=== PATIENT | male | born 1960 | race Two or more races ===

== ENCOUNTER 2019-07-08 17:55 | Inpatient (IN) | payer OTHER, MEDICAID ==
[~2019-07-08] VITALS: Ht 175.3 cm; Wt 158.0 kg
[~2019-07-08 17:55] MED LIST: ALL100T PO; ASPI-231 PO; ATEN-60 PO; GLIP5TAB12 PO; Pantoprazole Sodium Sesquihydr PO; TAM04C PO
[2019-07-08] MEDS ORDERED: SODIUM CHLORIDE 0.9% 1,000 ML IVB ONE (18:14)
[2019-07-08 18:45] LABS: Basophils # (auto) 0 10 ^3/uL (0-0.2); Basophils % (auto) 0.6 % (0.0-2.0); Eosinophils # (auto) 0.1 10 ^3/uL (0-0.8); Eosinophils % (auto) 2.2 % (0.0-7.0); Hematocrit 34.8 % (41.0-53.0); Hemoglobin 11.2 g/dL (13.5-17.5); Lymphocytes # (auto) 0.6 10 ^3/uL (0.4-5.4); Lymphocytes % (auto) 9.6 % (10.0-50.0); Mean Corpuscular Hemoglobin 32.2 pg (28.0-32.0); Mean Corpuscular Hgb Conc. 32.2 g/dL (32.0-36.0); Mean Corpuscular Volume 99.8 fL (80.0-100.0); Monocytes # (auto) 0.4 10 ^3/uL (0-1.3); Monocytes % (auto) 6.7 % (0.0-12.0); Neutrophils # (auto) 5.3 10 ^3/uL (1.6-8.6); Neutrophils % (auto) 80.9 % (37.0-80.0); Nucleated Red Blood Cells % 0.1 %; Platelet Count (auto) 161 10^3/uL (140-450); Red Blood Cells 3.49 10^6/uL (4.5-5.90); Red Cell Distribution Width 15.6 % (11.8-14.3); White Blood Cell 6.5 10^3/uL (4.4-10.8)
[2019-07-08 19:10] LABS: Albumin 3.4 g/dL (3.4-5.0); Calcium 8.9 mg/dL (8.5-10.1); Magnesium 2.2 mg/dL (1.6-2.6); Potassium 4.9 mmol/L (3.5-5.1)
[2019-07-08 19:13] LABS: Total Protein 7.4 g/dL (6.4-8.2)
[2019-07-08 19:34] LABS: INR 1.23 (0.9-1.15); Partial Thromboplastin Time 30.4 sec (23.64-32.05)
[2019-07-08] MEDS ORDERED: SITA100T7 PO (20:37)
[2019-07-08] MEDS ORDERED: HYDROcodone-ACET 10/325MG TAB PO ONE (21:00)
[2019-07-08] MEDS ORDERED: TEMAZEPAM 15 MG CAP PO PRN (21:30)
[2019-07-08] MEDS ORDERED: DEXTROSE (50%) 50ML SYRG IV PRN (21:30)
[2019-07-08] MEDS ORDERED: ONDANSETRON HCL 4 MG/2 ML VIAL IV PRN (21:30)
[2019-07-08] MEDS ORDERED: ACETAMINOPHEN 325 MG TAB PO PRN (21:30)
[2019-07-08 22:00] VITALS: BP 126/68
--- NOTE | 2019-07-08 22:05 | NUR ---
MS admit from ER BOY VO admitted to tele/MS. Patient oriented to AMADEO BRAND RN primary RN, MST unit, room 247, bed A, and unit policies regarding patient care and visiting hours. Patient weighed by bed scale and encouraged to call if they need something. All questions and concerns addressed, patient verbalized understanding. Note: PATIENT IS AWAKE, ALERT AND ORIENTED X4, ON 3L OF OXYGEN VIA NC WITH EVEN AND UNLABORED RESPIRATIONS, NO S/S OF DISTRESS SOB OR PAIN. PATIENT ABLE TO TURN INDEPENDENTLY, BED IN LOWEST LOCKED POSITION, SIDE RAILS UP X2, AND CALL LIGHT WITHIN REACH. WILL CONTINUE TO MONITOR Q1HR PRN.
[2019-07-08 22:23] LABS: Urine Bacteria NONE SEEN /hpf (None Seen); Urine Blood Negative /uL (Negative); Urine Hyaline Cast FEW /lpf (0 - 2); Urine Specific Gravity 1.018 (1.001-1.035); Urine WBC 1 /hpf (0 - 3)
--- NOTE | 2019-07-08 23:09 | NUR ---
UNABLE TO CONFIRM MEDICATION LISTED FROM ER. MEDICATIONS STATED HOME MEDS ARE UNABLE TO BE CONFIRMED BY PATIENT. PATIENT STATES DAUGHTER CAN CONFIRM LIST IN MORNING. INTERLOCKER RN MADE AWARE.
[2019-07-08] MEDS ORDERED: HYDROcodone-ACET 5/325MG TAB PO PRN (23:15)
--- NOTE | 2019-07-08 23:58 | NUR ---
BLOOD SUGAR 77 PATIENT WAS GIVEN 1 ORANGE JUICE, WILL CONTINUE TO MONITOR
[2019-07-09] VITALS (7 sets, daily range): BP systolic 111–140; BP diastolic 71–82
[2019-07-09] MEDS: ACCU-CHEK COMFORT CURVE STRIP VI SCH ×6 (00:07→20:31)
[2019-07-09] MEDS: FAMOTIDINE 20 MG TAB PO SCH ×3 (00:07→21:36)
--- NOTE | 2019-07-09 02:35 | NUR ---
BLOOD SUGAR 69 PATIENT CALLED NURSE REQUESTING TO HAVE HIS BLOOD SUGAR CHECKED. PATIENT STATED HIS CONCERN FOR HIS BLOOD SUGAR DROPPING AND REQUESTED "SOME KIND OF SHOT". EDUCATED PATIENT ON PROTOCOL AND POLICY, PATIENT VERBALIZED UNDERSTANDING. PATIENT WAS GIVEN 2 ORANGE JUICES WITH 2 PACKETS OF SUGAR. WILL REASSESS BLOOD SUGAR PRN AND AT SCHEDULED 0400.
[2019-07-09] MEDS: InsuLIN REG 1unit/0.01ml Soln (100units/ml) SC SCH ×6 (04:00→20:00)
[2019-07-09 06:00] LABS: Basophils # (auto) 0 10 ^3/uL (0-0.2); Basophils % (auto) 0.5 % (0.0-2.0); Eosinophils # (auto) 0.2 10 ^3/uL (0-0.8); Eosinophils % (auto) 3.9 % (0.0-7.0); Hematocrit 34.7 % (41.0-53.0); Hemoglobin 11.4 g/dL (13.5-17.5); Lymphocytes # (auto) 0.8 10 ^3/uL (0.4-5.4); Lymphocytes % (auto) 13.2 % (10.0-50.0); Mean Corpuscular Hemoglobin 32.6 pg (28.0-32.0); Mean Corpuscular Hgb Conc. 32.8 g/dL (32.0-36.0); Mean Corpuscular Volume 99.4 fL (80.0-100.0); Monocytes # (auto) 0.5 10 ^3/uL (0-1.3); Monocytes % (auto) 7.3 % (0.0-12.0); Neutrophils # (auto) 4.6 10 ^3/uL (1.6-8.6); Neutrophils % (auto) 75.1 % (37.0-80.0); Nucleated Red Blood Cells % 0.1 %; Platelet Count (auto) 159 10^3/uL (140-450); Red Blood Cells 3.49 10^6/uL (4.5-5.90); Red Cell Distribution Width 15.8 % (11.8-14.3); White Blood Cell 6.2 10^3/uL (4.4-10.8)
[2019-07-09 06:20] LABS: Calcium 8.8 mg/dL (8.5-10.1); Potassium 4.6 mmol/L (3.5-5.1)
--- NOTE | 2019-07-09 06:20 | NUR ---
PAIN MEDICATION PAGED HOSPITALIST, AWAITING CALLBACK FOR PAIN MEDICATION. PATIENT STATES HE CURRENTLY TAKES 10/325 NORCO AT HOME Q4HRS, AND THAT HE CANNOT GO 8HRS WITHOUT PAIN MEDICATION DUE TO HIS LOWER BACK PROBLEMS.
[2019-07-09 06:21] LABS: BUN/Creatinine Ratio 22.6
--- NOTE | 2019-07-09 07:00 | NUR ---
PAGE RETURNED RECEIVED CALL FROM BEAN GUERRERO, RECEIVED NEW ORDERS FOR PAIN MEDS, WILL FOLLOW THROUGH WITH ORDER.
[2019-07-09] MEDS: HYDROcodone-ACET 10/325MG TAB PO PRN ×3 (07:31→20:38)
[2019-07-09] MEDS: ASPirin 81 mg TAB PO SCH (09:14)
[2019-07-09] MEDS: ATENOLOL 50 MG TAB PO SCH (09:16)
[2019-07-09] MEDS: ALLOPURINOL 100 MG TAB PO SCH (09:16)
--- NOTE | 2019-07-09 10:07 | NUR ---
PT. TAKEN OFF BIPAP AND PLACED ON 3.5LPM NC, PT. REQUESTS TO COME OFF OF BIPAP AT THIS TIME AND WANTS TO HAVE A BOWEL MOVEMENT. APICULTURIST NOTIFIED AND WENT TO GO HELP PT.
--- NOTE | 2019-07-09 14:45 | NUR ---
DR. MILLER AT BEDSIDE TO ASSESS PATIENT AND DISCUSS PLAN OF CARE
[2019-07-09] MEDS: GABAPENTIN 300 MG CAP PO SCH ×2 (15:17→21:36)
--- NOTE | 2019-07-09 16:12 | NUR ---
Richardson catheter dc'd Order to discontinue richardson catheter. Richardson dc'd with clean technique following deflation of balloon. Patient tolerated well with no complaints of pain. Continue care.
[2019-07-09] MEDS ORDERED: TAMSULOSIN HYDROCHLORIDE 0.4 MG CAP PO SCH (18:00)
--- NOTE | 2019-07-09 19:15 | NUR ---
Opening Shift Note Assumed care of patient, awake, alert and oriented x4, on 3L of oxygen via NC with even and unlabored respirations, no S/S of distress/SOB or pain. Patient able to turn independently, bed in lowest locked position, side rails up x2, and call light within reach. Instructed on POC and to call for assist PRN, will continue to monitor for changes Q1hr and PRN.
[2019-07-10] MEDS: ACCU-CHEK COMFORT CURVE STRIP VI SCH ×5 (00:50→16:00)
[2019-07-10] MEDS: InsuLIN REG 1unit/0.01ml Soln (100units/ml) SC SCH ×5 (03:35→16:00)
[2019-07-10] MEDS: HYDROcodone-ACET 10/325MG TAB PO PRN (03:42)
[2019-07-10 05:00] VITALS: BP 113/70
[2019-07-10] MEDS: GABAPENTIN 300 MG CAP PO SCH ×2 (05:32→14:17)
--- NOTE | 2019-07-10 07:42 | NUR ---
Respiratory note: PT IS AWAKE, AND ALERT. NO RESPIRATORY DISTRESS NOTED. SPO2 94% ON 3 L NC, HR 76, RR 20, BS CLEAR/DIMINISHED BILATERALLY. PT STATES THAT BEING ON BIPAP AT NIGHT HAS HELPED WITH HIS BEING ABLE TO SLEEP SIGNIFICANTLY. WILL CONTINUE TO MONITOR PT.
[2019-07-10 08:00] VITALS: BP 145/73
[2019-07-10 09:00] VITALS: BP 129/67
--- NOTE | 2019-07-10 09:55 | NUR ---
WOUND CARE NOTE: IN TO SEE PATIENT PER WOUND CONSULT REQUEST. PATIENT ADMITTED TO [facility] WITH DIAGNOSIS OF PERSISTENT HYPOGLYCEMIA. PATIENT HAS A CURRENT EFRAIN SCORE OF 17. PATIENT IS SITTING UP IN CHAIR, BLE ELEVATED FOR EDEMA CONTROL. HE HAS CHRONIC EDEMA, ERYTHEMA, SCABBED CLOSED STASIS ULCERATIONS TO BOTH LOWER LEGS. PATIENT IS CURRENTLY RECEIVING DIURETICS, AND BLE ARE NO LONGER WEEPING. LEFT ALL OPEN TO AIR. WOUND PHOTOS WERE TAKEN UPON ADMIT BY BEDSIDE NURSE FOR REFERENCE. PATIENT EDUCATED IN WOUND CARE AT THIS TIME. PATIENT VERBALIZED UNDERSTANDING AND WILL BE FOLLOWING UP WITH SENIOR MEDIA PLANNER FOR HIS PVD/VENOUS STASIS ULCERS. PATIENT WILL BE DISCHARGING HOME THIS PM, PER MD ORDER. NO FURTHER WOUND CARE NEEDED AT THIS TIME. Addendum: 07/10/19 at 1700 by Amelia Banegas RN Amended: Links added.
[2019-07-10] MEDS: FAMOTIDINE 20 MG TAB PO SCH (10:47)
[2019-07-10] MEDS: ATENOLOL 50 MG TAB PO SCH (10:48)
[2019-07-10] MEDS: ASPirin 81 mg TAB PO SCH (10:48)
[2019-07-10] MEDS: ALLOPURINOL 100 MG TAB PO SCH (10:49)
[2019-07-10 13:00] VITALS: BP 125/66
[2019-07-10 15:42] VITALS: BP 145/73
--- NOTE | 2019-07-10 17:05 | NUR ---
Discharge instructions given as ordered. Encourage to follow up with PMD as instructed. All questions and concerns addressed. Patient verbalized understanding. Medication reconciliation form completed and copy given to patient. IV removed with catheter intact, pressure dressing applied. Patient taken to vehicle via wheelchair with all personal belongings, accompanied by staff . No distress noted at time of departure.
== END 2019-07-10 17:05 | disposition home or self-care (01) | DRG 638 ==
LOC: EDUNIT# 17:55 → EDBD 17:55 → ER 17:55 → OVERFLOW 17:56 → EAST 22:05
PROVIDERS: ADMIT Nurse Practitioner; ATTEND Internal Medicine Nephrology
PROC: 5A09457 Assistance with Respiratory Ventilation, 24-96 Consecutive Hours, Continuous Positive Airway Pressure (ICD-10-PCS; principal; 2019-07-09)
DX: E11.649 Type 2 diabetes mellitus with hypoglycemia without coma (principal); L97.919 Non-pressure chronic ulcer of unspecified part of right lower leg with unspecified severity; L97.929 Non-pressure chronic ulcer of unspecified part of left lower leg with unspecified severity; J96.10 Chronic respiratory failure, unspecified whether with hypoxia or hypercapnia; D64.9 Anemia, unspecified; I50.9 Heart failure, unspecified; E11.65 Type 2 diabetes mellitus with hyperglycemia; E78.5 Hyperlipidemia, unspecified; I11.0 Hypertensive heart disease with heart failure; I87.2 Venous insufficiency (chronic) (peripheral); I25.10 Atherosclerotic heart disease of native coronary artery without angina pectoris; J44.9 Chronic obstructive pulmonary disease, unspecified; Z82.49 Family history of ischemic heart disease and other diseases of the circulatory system; Z83.3 Family history of diabetes mellitus
CPT/HCPCS: 36415; 51702; 71045; 80048; 80053; 81001; 82962; 83036; 83690; 83735; 83880; 84484; 85025; 85610; 85730; 93005; 93306; 94660; G0378; J2405

== ENCOUNTER 2019-09-05 08:57 | Inpatient (IN) | payer OTHER, MEDICAID ==
[~2019-09-05] VITALS: Ht 175.3 cm; Wt 144.1 kg
[~2019-09-05 08:57] MED LIST changes: -ALL100T PO; -GLIP5TAB12 PO
[2019-09-05] MEDS ORDERED: SODIUM CHLORIDE 0.9% 1,000 ML IV ONE (09:24)
[2019-09-05 10:11] LABS: Basophils # (auto) 0 10 ^3/uL (0-0.2); Basophils % (auto) 0.6 % (0.0-2.0); Eosinophils # (auto) 0.2 10 ^3/uL (0-0.8); Eosinophils % (auto) 3.5 % (0.0-7.0); Hematocrit 31.6 % (41.0-53.0); Hemoglobin 10.2 g/dL (13.5-17.5); Lymphocytes # (auto) 0.5 10 ^3/uL (0.4-5.4); Lymphocytes % (auto) 11.7 % (10.0-50.0); Mean Corpuscular Hemoglobin 30.6 pg (28.0-32.0); Mean Corpuscular Hgb Conc. 32.4 g/dL (32.0-36.0); Mean Corpuscular Volume 94.4 fL (80.0-100.0); Monocytes # (auto) 0.3 10 ^3/uL (0-1.3); Monocytes % (auto) 6.5 % (0.0-12.0); Neutrophils # (auto) 3.6 10 ^3/uL (1.6-8.6); Neutrophils % (auto) 77.7 % (37.0-80.0); Nucleated Red Blood Cells % 0.1 %; Platelet Count (auto) 155 10^3/uL (140-450); Red Blood Cells 3.35 10^6/uL (4.5-5.90); Red Cell Distribution Width 16.1 % (11.8-14.3); White Blood Cell 4.6 10^3/uL (4.4-10.8)
[2019-09-05] MEDS ORDERED: MORPHINE SULF INJ 2 MG/ML SYRINGE 1ML IV ONE ×2 (10:15→13:30)
[2019-09-05] MEDS ORDERED: ONDANSETRON HCL 4 MG/2 ML VIAL IV ONE ×2 (10:15→13:30)
[2019-09-05 10:30] LABS: Albumin 3.2 g/dL (3.4-5.0); Anion Gap 1 (5-15); Blood Urea Nitrogen 17 mg/dL (7-18); Calcium 9.1 mg/dL (8.5-10.1); Carbon Dioxide 36 mmol/L (21-32); Chloride 98 mmol/L (98-107); Glucose 149 mg/dL (74-106); Potassium 4.6 mmol/L (3.5-5.1); Sodium 135 mmol/L (136-145)
[2019-09-05 10:35] LABS: Alanine Aminotransferase 10 U/L (16-61); Alkaline Phosphatase 104 U/L (45-117); Aspartate Aminotransferase 6 U/L (15-37); BUN/Creatinine Ratio 20.5; GFR African American 122 mL/min; GFR Non-African American 101 mL/min; Total Protein 7.2 g/dL (6.4-8.2)
[2019-09-05] MEDS ORDERED: FUROSEMIDE 40 MG/4 ML VIAL IV ONE (13:30)
[2019-09-05] MEDS ORDERED: MORPHINE SULF INJ 2 MG/ML SYRINGE 1ML IV PRN (14:30)
[2019-09-05] MEDS ORDERED: NITROGLYCERIN 0.4 MG SL TAB SL PRN (14:30)
[2019-09-05 14:31] VITALS: BP 125/65
[2019-09-05] MEDS ORDERED: ACETAMINOPHEN 500 MG TAB PO PRN (14:45)
[2019-09-05] MEDS ORDERED: PROMETHAZINE HCL 25 MG/ML 1ML IV PRN (14:45)
[2019-09-05] MEDS ORDERED: LACTULOSE 20Gm/30ML SOLN PO PRN (14:45)
[2019-09-05] MEDS ORDERED: DEXTROSE (50%) 50ML SYRG IV PRN (14:45)
[2019-09-05] MEDS ORDERED: traMADol HCL 50 MG TAB PO PRN (14:45)
[2019-09-05 14:58] LABS: CRP High Sensitivity 0.35 mg/dL (< 0.3)
[2019-09-05 15:05] VITALS: BP 125/64
--- NOTE | 2019-09-05 15:05 | NUR ---
RT NOTE: TOOK PT. OFF BIPAP DUE TO PT. NOW COVID R/O. RN AWARE. PT. PLACED ON 4L N/C. POX 92%.
[2019-09-05 15:09] LABS: Urine Amorphous Crystal FEW /hpf (None Seen); Urine Bacteria NONE SEEN /hpf (None Seen); Urine Blood TRACE /uL (Negative); Urine Mucus FEW (None Seen); Urine Specific Gravity 1.022 (1.001-1.035); Urine WBC 1 /hpf (0 - 3)
[2019-09-05] MEDS ORDERED: ACETAMINOPHEN 325 MG TAB PO ONE (15:30)
[2019-09-05 15:53] LABS: Alcohol, Urine < 3.0 mg/dL (0-10); Amphetamine Screen, Urine NEGATIVE (NEGATIVE); Barbiturate Scree,Urine NEGATIVE (NEGATIVE); Benzodiazephine Screen, Urine NEGATIVE (NEGATIVE); Cannabinoid Screen, Urine NEGATIVE (NEGATIVE); Cocaine Screen, Urine NEGATIVE (NEGATIVE); Opiate Scree,Urine POSITIVE (NEGATIVE); Phencyclidine Screen, Urine NEGATIVE (NEGATIVE)
[2019-09-05 16:41] VITALS: BP 110/56
[2019-09-05] MEDS: levoFLOXacin 500MG 100 ML IV SCH (16:56)
[2019-09-05] MEDS: HYDROcodone-ACET 10/325MG TAB PO PRN ×2 (16:57→22:50)
[2019-09-05] MEDS: ACCU-CHEK COMFORT CURVE STRIP VI SCH ×2 (17:16→22:52)
[2019-09-05] MEDS: InsuLIN REG 1unit/0.01ml Soln (100units/ml) SC SCH ×2 (17:17→22:00)
[2019-09-05 18:20] VITALS: BP 101/46
[2019-09-05] MEDS ORDERED: ENOXAPARIN SOD 40 MG/0.4 ML SYRINGE SC SCH (22:00)
[2019-09-05] MEDS: CLINDAMYCIN 600MG IV 50 ML IV SCH (22:50)
[2019-09-05] MEDS: SODIUM CHLOR 0.9% PF (SALINE LOCK) 10ML VIAL/SYR IV SCH (22:51)
[2019-09-05] MEDS: DOXYCYCLINE 100 MG TAB/CAP PO SCH (22:51)
[2019-09-05] MEDS: ENOXAPARIN SOD 80 MG/0.8ML SYRINGE SC SCH (22:52)
[2019-09-05] MEDS: ALBUTEROL SULF HFA 90MCG INH 200DOSE IN SCH (23:17)
[2019-09-06] MEDS: HYDROcodone-ACET 10/325MG TAB PO PRN ×3 (03:25→15:05)
[2019-09-06] MEDS: ALBUTEROL SULF HFA 90MCG INH 200DOSE IN SCH ×2 (06:00→16:23)
[2019-09-06] MEDS: InsuLIN REG 1unit/0.01ml Soln (100units/ml) SC SCH ×4 (07:00→21:37)
[2019-09-06] MEDS: ACCU-CHEK COMFORT CURVE STRIP VI SCH ×4 (07:03→21:38)
[2019-09-06] MEDS: SODIUM CHLOR 0.9% PF (SALINE LOCK) 10ML VIAL/SYR IV SCH ×3 (07:03→21:36)
[2019-09-06] MEDS: CLINDAMYCIN 600MG IV 50 ML IV SCH ×3 (07:03→21:36)
[2019-09-06] MEDS ORDERED: ASCORBIC ACID 1,000 MG TAB PO SCH (10:00)
[2019-09-06] MEDS ORDERED: CHOLECALCIFEROL (VITD3) 1,000UNIT=25mCg TAB PO SCH (10:00)
[2019-09-06] MEDS ORDERED: ZINC SULFATE 220mg CAP or TAB PO SCH (10:00)
[2019-09-06] MEDS ORDERED: HYDROcodone-ACET 10/325MG TAB PO PRN (10:30)
[2019-09-06] MEDS: levoFLOXacin 500MG 100 ML IV SCH (10:39)
[2019-09-06] MEDS: DOXYCYCLINE 100 MG TAB/CAP PO SCH ×2 (10:39→21:37)
[2019-09-06] MEDS: ASPirin 81 mg TAB PO SCH (10:39)
[2019-09-06] MEDS: ENOXAPARIN SOD 80 MG/0.8ML SYRINGE SC SCH (11:56)
[2019-09-06 13:26] LABS: Basophils # (auto) 0 10 ^3/uL (0-0.2); Basophils % (auto) 0.5 % (0.0-2.0); Eosinophils # (auto) 0.1 10 ^3/uL (0-0.8); Eosinophils % (auto) 2.5 % (0.0-7.0); Hematocrit 31.7 % (41.0-53.0); Hemoglobin 10.2 g/dL (13.5-17.5); Lymphocytes # (auto) 0.6 10 ^3/uL (0.4-5.4); Lymphocytes % (auto) 12.5 % (10.0-50.0); Mean Corpuscular Hemoglobin 30.4 pg (28.0-32.0); Mean Corpuscular Hgb Conc. 32.2 g/dL (32.0-36.0); Mean Corpuscular Volume 94.4 fL (80.0-100.0); Monocytes # (auto) 0.3 10 ^3/uL (0-1.3); Monocytes % (auto) 6.5 % (0.0-12.0); Neutrophils # (auto) 3.5 10 ^3/uL (1.6-8.6); Platelet Count (auto) 147 10^3/uL (140-450); Red Blood Cells 3.36 10^6/uL (4.5-5.90); Red Cell Distribution Width 16.1 % (11.8-14.3); White Blood Cell 4.5 10^3/uL (4.4-10.8)
[2019-09-06 13:48] LABS: Potassium 4.6 mmol/L (3.5-5.1)
[2019-09-06] MEDS ORDERED: SODIUM CHLORIDE 0.9 % NEB SOLN 3ML NEB ONE (13:48)
[2019-09-06] MEDS ORDERED: ALBUTEROL SULF 2.5 MG/0.5ML(0.5%) NEB SOLN ONE (13:48)
[2019-09-06 13:52] LABS: Albumin 3.1 g/dL (3.4-5.0); BUN/Creatinine Ratio 21.4; Calcium 9.1 mg/dL (8.5-10.1)
[2019-09-06 13:55] LABS: Bilirubin, Total 1.1 mg/dL (0.2-1.0)
[2019-09-06 19:27] VITALS: BP 119/67
[2019-09-06] MEDS: ENOXAPARIN SOD 120 MG/0.8 ML SYRINGE SC SCH (21:37)
[2019-09-06] MEDS: ALBUTEROL SULF 2.5 MG/0.5ML(0.5%) NEB SOLN NEB SCH (22:40)
[2019-09-07] VITALS (10 sets, daily range): BP systolic 97–141; BP diastolic 38–67
[2019-09-07] MEDS: InsuLIN REG 1unit/0.01ml Soln (100units/ml) SC SCH ×4 (06:00→22:00)
[2019-09-07] MEDS: SODIUM CHLOR 0.9% PF (SALINE LOCK) 10ML VIAL/SYR IV SCH ×3 (06:14→22:50)
[2019-09-07] MEDS: CLINDAMYCIN 600MG IV 50 ML IV SCH ×3 (06:14→22:49)
[2019-09-07] MEDS: ACCU-CHEK COMFORT CURVE STRIP VI SCH ×4 (06:15→22:27)
[2019-09-07] MEDS: ALBUTEROL SULF 2.5 MG/0.5ML(0.5%) NEB SOLN NEB SCH ×3 (07:10→22:31)
--- NOTE | 2019-09-07 07:15 | NUR ---
Respiratory note: RECEIVED PATIENT ON B10 BIPAP FITTED WITH A BASAL CRADLE, AND VENTILATED WITH THE CHARTED SETTINGS. SPO2 94%, LUNG SOUNDS CL/DIM T/O. PATIENT IS AWAKE/ALERT AND TOLERATING BIPAP WELL. NO CHANGES MADE AT THIS TIME. BIPAP PLUGGED INTO RED OUTLET AND ALL ALARMS ARE SET AND AUDIBLE. WILL CONTINUE TO ASSESS PATIENT WELL VENTILATOR FUNCTION. MED-NEB RUN INLINE.
[2019-09-07] MEDS: levoFLOXacin 500MG 100 ML IV SCH (09:01)
[2019-09-07] MEDS: DOXYCYCLINE 100 MG TAB/CAP PO SCH ×2 (09:08→22:51)
[2019-09-07] MEDS: ASPirin 81 mg TAB PO SCH (09:08)
[2019-09-07] MEDS: ENOXAPARIN SOD 120 MG/0.8 ML SYRINGE SC SCH ×2 (09:08→22:00)
[2019-09-07] MEDS: GABAPENTIN 300 MG CAP PO SCH ×2 (09:08→22:50)
[2019-09-07] MEDS: HYDROcodone-ACET 10/325MG TAB PO PRN ×3 (09:09→22:53)
[2019-09-07 09:32] LABS: Basophils # (auto) 0 10 ^3/uL (0-0.2); Basophils % (auto) 0.8 % (0.0-2.0); Eosinophils # (auto) 0.1 10 ^3/uL (0-0.8); Eosinophils % (auto) 2.8 % (0.0-7.0); Hematocrit 31.4 % (41.0-53.0); Hemoglobin 10.3 g/dL (13.5-17.5); Lymphocytes # (auto) 0.7 10 ^3/uL (0.4-5.4); Lymphocytes % (auto) 15.1 % (10.0-50.0); Mean Corpuscular Hemoglobin 30.6 pg (28.0-32.0); Mean Corpuscular Hgb Conc. 32.6 g/dL (32.0-36.0); Mean Corpuscular Volume 93.7 fL (80.0-100.0); Monocytes # (auto) 0.3 10 ^3/uL (0-1.3); Monocytes % (auto) 5.7 % (0.0-12.0); Neutrophils # (auto) 3.4 10 ^3/uL (1.6-8.6); Neutrophils % (auto) 75.6 % (37.0-80.0); Nucleated Red Blood Cells % 0.1 %; Platelet Count (auto) 136 10^3/uL (140-450); Red Blood Cells 3.36 10^6/uL (4.5-5.90); Red Cell Distribution Width 16.2 % (11.8-14.3); White Blood Cell 4.5 10^3/uL (4.4-10.8)
[2019-09-07 09:54] LABS: Albumin 3.1 g/dL (3.4-5.0); BUN/Creatinine Ratio 18.8; Calcium 9.1 mg/dL (8.5-10.1); Potassium 4.2 mmol/L (3.5-5.1)
[2019-09-07 09:56] LABS: Bilirubin, Total 1.3 mg/dL (0.2-1.0); Total Protein 7.1 g/dL (6.4-8.2)
[2019-09-07] MEDS: MORPHINE SULFATE 4 MG/ML SYR/VIAL IV PRN ×2 (13:24→22:53)
[2019-09-07] MEDS ORDERED: POTASSIUM EFFERVESENT TAB 25 MEQ PO ONE (15:00)
[2019-09-07] MEDS: FUROSEMIDE 20 MG/2 ML VIAL IV SCH (17:58)
--- NOTE | 2019-09-07 20:02 | NUR ---
Respiratory note: PT TAKEN OFF BIPAP AT THIS TIME. PLACED PATIENT ON A 4L NASAL CANNULA, SP02 HOLDING AT 94-95%. PT AGREED TO COME OFF BIPAP FOR LONG HE TOLERATES IT. PT IS GOING TO TRY AND EAT HIS DINNER. HE IS AWARE TO CALL FOR RT IF HE WISHES TO GO BACK ON BIPAP.
[2019-09-08 02:25] VITALS: BP 117/58
[2019-09-08 04:30] VITALS: BP 131/69
[2019-09-08] MEDS: HYDROcodone-ACET 10/325MG TAB PO PRN ×3 (05:46→17:52)
[2019-09-08] MEDS: CLINDAMYCIN 600MG IV 50 ML IV SCH ×5 (05:55→20:32)
[2019-09-08 06:28] LABS: Basophils # (auto) 0 10 ^3/uL (0-0.2); Basophils % (auto) 0.8 % (0.0-2.0); Eosinophils # (auto) 0.2 10 ^3/uL (0-0.8); Hemoglobin 10.4 g/dL (13.5-17.5); Lymphocytes # (auto) 0.8 10 ^3/uL (0.4-5.4); Lymphocytes % (auto) 15.3 % (10.0-50.0); Mean Corpuscular Hemoglobin 30.3 pg (28.0-32.0); Mean Corpuscular Hgb Conc. 32.6 g/dL (32.0-36.0); Monocytes # (auto) 0.3 10 ^3/uL (0-1.3); Monocytes % (auto) 6.8 % (0.0-12.0); Neutrophils # (auto) 3.8 10 ^3/uL (1.6-8.6); Neutrophils % (auto) 74.1 % (37.0-80.0); Nucleated Red Blood Cells % 0.1 %; Platelet Count (auto) 152 10^3/uL (140-450); Red Blood Cells 3.44 10^6/uL (4.5-5.90); Red Cell Distribution Width 16.6 % (11.8-14.3); White Blood Cell 5.1 10^3/uL (4.4-10.8)
[2019-09-08 06:38] VITALS: BP 131/69
[2019-09-08] MEDS: ALBUTEROL SULF 2.5 MG/0.5ML(0.5%) NEB SOLN NEB SCH ×3 (06:38→22:00)
[2019-09-08 06:48] LABS: Chloride 94 mmol/L (98-107); Potassium 4.1 mmol/L (3.5-5.1); Sodium 134 mmol/L (136-145)
[2019-09-08 07:00] LABS: Alanine Aminotransferase 11 U/L (16-61); Albumin 3.3 g/dL (3.4-5.0); Alkaline Phosphatase 95 U/L (45-117); Anion Gap 3 (5-15); Aspartate Aminotransferase 10 U/L (15-37); BUN/Creatinine Ratio 18.7; Bilirubin, Total 1.5 mg/dL (0.2-1.0); Blood Urea Nitrogen 17 mg/dL (7-18); Carbon Dioxide 37 mmol/L (21-32); GFR African American 110 mL/min; GFR Non-African American 91 mL/min; Glucose 87 mg/dL (74-106); Total Protein 7.4 g/dL (6.4-8.2)
[2019-09-08] MEDS: InsuLIN REG 1unit/0.01ml Soln (100units/ml) SC SCH ×4 (07:00→21:38)
[2019-09-08] MEDS: FUROSEMIDE 20 MG/2 ML VIAL IV SCH ×2 (07:00→17:52)
[2019-09-08] MEDS: SODIUM CHLOR 0.9% PF (SALINE LOCK) 10ML VIAL/SYR IV SCH ×3 (07:01→20:33)
[2019-09-08] MEDS: ACCU-CHEK COMFORT CURVE STRIP VI SCH ×4 (07:04→20:33)
--- NOTE | 2019-09-08 08:30 | NUR ---
Respiratory note: PT TAKEN OFF OF BIPAP, AND PLACED ON 4L NC TO EAT BREAKFAST. PT TOLERATED CHANGE WELL. PT SPO2 97%, HR 82, RR 19, BS CLEAR/DIMINISHED. RN AWARE. WILL CONTINUE TO MONITOR PT.
[2019-09-08] MEDS: ENOXAPARIN SOD 120 MG/0.8 ML SYRINGE SC SCH ×2 (09:17→20:34)
[2019-09-08] MEDS: levoFLOXacin 500MG 100 ML IV SCH (09:17)
[2019-09-08] MEDS: GABAPENTIN 300 MG CAP PO SCH ×2 (09:17→20:33)
[2019-09-08] MEDS: POTASSIUM EFFERVESENT TAB 25 MEQ PO SCH (09:17)
[2019-09-08] MEDS: DOXYCYCLINE 100 MG TAB/CAP PO SCH ×2 (09:17→20:33)
[2019-09-08] MEDS: ASPirin 81 mg TAB PO SCH (09:17)
--- NOTE | 2019-09-08 12:00 | NUR ---
PT ASKED TO BE PLACED BACK ON BIPAP, SO THAT HE COULD SLEEP. PT PLACED ON PREVIOUS SETTINGS 20/5 BUR 12 30% FIO2. WILL CONTINUE TO MONITOR PT. RN AWARE.
--- NOTE | 2019-09-08 12:40 | NUR ---
WOUND CARE NOTE: Wound care in to see patient per wound care request regarding wounds that are noted present on admission. Patient is 59 years old male with admitting diagnosis of COPD Exacerbation. Patient is resting in ER bed #14. Patient is awake, alert and oriented. He's in no stated pain at this time, however reports pain upon movement. Patient reported that he's ambulatory with walker and he's self turning and repositioning. Noted dry hyperkeratotic skin to patient's BLE. His Rt lower leg has multi crusted wounds with edema and erythema, no drainage, no odor noted. Patient reported that he has had the Rt lower leg wounds "for a week". Cleansed patient's BLE with wound cleanser, applied Thera honey gauze to multi crusted wounds to Rt lower leg. Applied Hydraguard cream to dry BLE skin. Covered RLE wounds with large abd pads and secured with stockinette. Photograph of patient's skin issue are taken for reference. Patient tolerated examination well and denies any other wound, he refused turning to check his sacral and back. REY Ramos at bedside is aware. RECOMMENDATION: Nursing to continue with Daily/PRN dressing change to RLE wounds, Hydraguard cream to dry BLE skin to help hydrates skin per MD order, dietary consult due to presence of wounds, elevate affected extremity on pillows, continue monitoring by wound care while patient is hospitalized. Addendum: 09/08/19 at 1517 by Bri Styles RN Amended: Links added.
--- NOTE | 2019-09-08 15:00 | NUR ---
Respiratory note: PT TAKEN OFF OF BIPAP, AND PLACED ON 4L NC. PT TOLERATING CHANGE WELL. WILL CONTINUE TO MONITOR PT.
--- NOTE | 2019-09-08 15:20 | NUR ---
Telemetry admit from ER BOY VO admitted to Telemetry unit after SBAR received. Patient oriented to Mary Gale, primary RN, unit, room, bed, and unit policies regarding patient care and visiting hours. Patient now on continuous telemetry monitoring, tele box # 45 and telemetry reading on arrival to unit is sinus rhythm in the 80's. Patient on Bipap. Updated on POC and instructed to call for assistance as needed, patient verbalized understanding. Bed locked in lowest position, side rails up x2, call light within reach. Will continue to monitor q1hr and PRN.
--- NOTE | 2019-09-08 15:27 | NUR ---
NON-ADMIN MEDICATION PATIENT STATES HE HAD HIS ANTIBIOTICS IN THE ED BEFORE BEING BROUGHT TO THE FLOOR. Addendum: 09/08/19 at 1545 by Mary Gale RN CORRECTION: IV ANTIBIOTIC WAS SENT TO THE FLOOR FROM ED. ADMINISTERED ORDERED.
--- NOTE | 2019-09-08 15:30 | NUR ---
Respiratory note: PT TRANSPORTED FROM ER BED 14, TO CENTRAL BED 270 B WITHOUT INCIDENT. PT REMAINS ON 4L NC WITH CONTINUOUS PULSE OX AT BEDSIDE. BIPAP CONNECTED TO RED OUTLET, AND O2 SOURCE AT BEDSIDE ON STAND BY. SPO2 95% ON 4L NC, HR 85, RR, 20, BS CLEAR BILATERALLY. RN AT BEDSIDE.
--- NOTE | 2019-09-08 15:35 | NUR ---
PATIENT REFUSING TO HAVE LINENS CHANGED AT THIS TIME PATIENT STATES HE WANTS TO DO IT LATER AFTER HIS 1800 PAIN MEDICATION.
[2019-09-08] MEDS ORDERED: LISI2.5T47 (16:28)
[2019-09-08] MEDS ORDERED: ATOR20TA50 (16:28)
[2019-09-08] MEDS ORDERED: HYDR-4798 (16:28)
[2019-09-08] MEDS ORDERED: GLIM4TAB42 (16:28)
[2019-09-08] MEDS ORDERED: ALLO300T2 (16:28)
[2019-09-08] MEDS ORDERED: FURO40TA4 (16:28)
[2019-09-08] MEDS ORDERED: GABA300C10 PO (16:28)
[2019-09-08] MEDS ORDERED: GEMF600T7 (16:28)
[2019-09-08] MEDS ORDERED: CARV3.1240 (16:28)
[2019-09-08] MEDS: MORPHINE SULFATE 4 MG/ML SYR/VIAL IV PRN (20:34)
--- NOTE | 2019-09-08 20:44 | NUR ---
Patient medicated for pin.
--- NOTE | 2019-09-08 21:00 | NUR ---
Patient was not felling good, complaining of N/V, medication given. Called RT to put patient on B PAP
--- NOTE | 2019-09-08 21:20 | NUR ---
RT was in the room. Patient sitting on the side of the bed, trying to get up. Patient was set on the chair and his linen where changed. RT placed B Pap on the patient and he was helped back to bed. Will continue to monitor.
[2019-09-08 22:00] VITALS: BP 132/76
--- NOTE | 2019-09-08 22:46 | NUR ---
Patient was found again sitting on the side of the bed. He was having a dream that the nurse wanted him to get up. Patient requested to sit on the chair.
--- NOTE | 2019-09-08 22:59 | NUR ---
Patient helped back to bed. Bed alarm turned on. Bed on the lowest position, side rails up, call light with in reach.
[2019-09-09] VITALS (7 sets, daily range): BP systolic 115–141; BP diastolic 63–84
--- NOTE | 2019-09-09 05:10 | NUR ---
Rounds Patient awake and alert. No S/S of distress/SOB or pain. Will continue to monitor changes q1hr and PRN.
--- NOTE | 2019-09-09 05:30 | NUR ---
Portable X Ray done by tech.
[2019-09-09] MEDS: SODIUM CHLOR 0.9% PF (SALINE LOCK) 10ML VIAL/SYR IV SCH ×3 (05:48→22:10)
[2019-09-09] MEDS: InsuLIN REG 1unit/0.01ml Soln (100units/ml) SC SCH ×4 (05:48→22:25)
[2019-09-09] MEDS: ACCU-CHEK COMFORT CURVE STRIP VI SCH ×4 (05:48→22:11)
[2019-09-09] MEDS: FUROSEMIDE 20 MG/2 ML VIAL IV SCH ×2 (05:49→17:45)
[2019-09-09] MEDS: CLINDAMYCIN 600MG IV 50 ML IV SCH ×3 (05:49→22:10)
[2019-09-09 07:14] LABS: Basophils # (auto) 0 10 ^3/uL (0-0.2); Basophils % (auto) 0.6 % (0.0-2.0); Eosinophils # (auto) 0.2 10 ^3/uL (0-0.8); Eosinophils % (auto) 2.9 % (0.0-7.0); Hematocrit 32.9 % (41.0-53.0); Hemoglobin 10.9 g/dL (13.5-17.5); Lymphocytes # (auto) 0.9 10 ^3/uL (0.4-5.4); Lymphocytes % (auto) 16.5 % (10.0-50.0); Mean Corpuscular Hemoglobin 30.6 pg (28.0-32.0); Mean Corpuscular Volume 92.7 fL (80.0-100.0); Monocytes # (auto) 0.4 10 ^3/uL (0-1.3); Monocytes % (auto) 7.2 % (0.0-12.0); Neutrophils # (auto) 3.8 10 ^3/uL (1.6-8.6); Neutrophils % (auto) 72.8 % (37.0-80.0); Platelet Count (auto) 152 10^3/uL (140-450); Red Blood Cells 3.55 10^6/uL (4.5-5.90); Red Cell Distribution Width 16.7 % (11.8-14.3); White Blood Cell 5.2 10^3/uL (4.4-10.8)
[2019-09-09 07:39] LABS: Albumin 3.4 g/dL (3.4-5.0); Calcium 9.1 mg/dL (8.5-10.1); Potassium 3.8 mmol/L (3.5-5.1)
[2019-09-09 07:46] LABS: BUN/Creatinine Ratio 15.3; Bilirubin, Total 1.4 mg/dL (0.2-1.0); Total Protein 7.6 g/dL (6.4-8.2)
--- NOTE | 2019-09-09 08:00 | NUR ---
ASSESSMENT NOTE PT IS ALERT ORIENTED X4, CONTINUE ON CPAP, NO DISTRESS NOTED, PT IS VERY OBESE, RESTING ON A BIG BOY BED, LEFT LOWER LEG SKIN REDNESS OPEN TO AIR, DRY CLEAN DRESSING NOTED ON RT LOWER LEG, PT HAS VERY LARGE ABDOMEN FIRM TO TOUCH, ON PAIN MANAGEMENT AT ALL TIMES NEEDED, CALL LIGHT WITHIN REACH, NEXT TO THE NURSING STATION
[2019-09-09] MEDS: ALBUTEROL SULF 2.5 MG/0.5ML(0.5%) NEB SOLN NEB SCH ×3 (08:04→22:12)
[2019-09-09] MEDS: HYDROcodone-ACET 10/325MG TAB PO PRN ×3 (08:09→19:50)
--- NOTE | 2019-09-09 09:35 | NUR ---
CPAP OFF PATIENT AT THIS TIME, PT IS REQUESTING PAIN MEDICATIONS
[2019-09-09] MEDS: levoFLOXacin 500MG 100 ML IV SCH (09:46)
[2019-09-09] MEDS: GABAPENTIN 300 MG CAP PO SCH ×2 (09:47→22:11)
[2019-09-09] MEDS: POTASSIUM EFFERVESENT TAB 25 MEQ PO SCH (09:47)
[2019-09-09] MEDS: ENOXAPARIN SOD 120 MG/0.8 ML SYRINGE SC SCH ×2 (09:47→22:11)
[2019-09-09] MEDS: ASPirin 81 mg TAB PO SCH (09:47)
[2019-09-09] MEDS: DOXYCYCLINE 100 MG TAB/CAP PO SCH ×2 (09:47→22:11)
[2019-09-09] MEDS ORDERED: ALLOPURINOL 300 MG TAB PO ONE (10:00)
[2019-09-09] MEDS: ALLOPURINOL 300 MG TAB PO SCH (10:00)
--- NOTE | 2019-09-09 12:57 | NUR ---
Nutrition Assessment Notes Please refer to link for full assessment notes. Est Energy needs: [id number] kcals (12-15 kcal/kgBW) Est Protein needs: 122-152 gms/day (0.8-1.0 gm/kgBW) Will continue to monitor and reassess prn. Addendum: 09/09/19 at [address] Amended: Links added.
[2019-09-09] MEDS: MORPHINE SULFATE 4 MG/ML SYR/VIAL IV PRN (14:20)
--- NOTE | 2019-09-09 18:45 | NUR ---
PT CONTINUE STABLE, CONTINUE MONITORING
--- NOTE | 2019-09-09 19:00 | NUR ---
Report from RN at bedside. Patient was bleeding when I first came on shift. It was from an IV attempt on ER on his left upper chest. Occlusion pressure dressing applied and it seems successful. Patient alert and oriented, POC discussed with patient. Bed on lowest position, side rails up. Call light with in reach.
--- NOTE | 2019-09-09 19:30 | NUR ---
Noted AM shift was in the room, went to see what was going on. Patient started to bleed again. Nurse was applying pressure for 15 min and called Hospitalist. AM left and i cont to apply pressure, and again placed a pressure dressing over it.
--- NOTE | 2019-09-09 19:30 | NUR ---
BLOOD NOTED COMING OUT FROM LEFT UPPER CHEST DRESSING, ASSESS PT, PT HAS WHAT LOOK LIKE A BLACK MOLE, DRIPPING SLOWLY BLOOD, PRESSURE APPLIED, SECURED WITH TAPE, 15 MIN LATER, PT START TO BLEED AGAIN, SPOKE WITH DR MESA ABOUT MY ATTEMPTS TO STOP IT BLEEDING, SAID THAT HE IS COMING OVER TO LOOK AT IT
--- NOTE | 2019-09-09 20:28 | NUR ---
BEAN Malone at bed side put silver nitrate over the bruise/blister and stopped the bleeding. Covered with dressing. Will continue to monitor.
[2019-09-10] MEDS: CLINDAMYCIN 600MG IV 50 ML IV SCH (04:42)
[2019-09-10] MEDS: FUROSEMIDE 20 MG/2 ML VIAL IV SCH ×2 (04:42→17:59)
[2019-09-10] MEDS: HYDROcodone-ACET 10/325MG TAB PO PRN ×3 (04:50→18:00)
[2019-09-10 05:00] VITALS: BP 124/83
[2019-09-10] MEDS: ACCU-CHEK COMFORT CURVE STRIP VI SCH ×4 (06:24→20:40)
[2019-09-10 06:28] LABS: Basophils # (auto) 0 10 ^3/uL (0-0.2); Basophils % (auto) 0.5 % (0.0-2.0); Eosinophils # (auto) 0.2 10 ^3/uL (0-0.8); Eosinophils % (auto) 4.1 % (0.0-7.0); Hematocrit 32.3 % (41.0-53.0); Hemoglobin 10.6 g/dL (13.5-17.5); Lymphocytes # (auto) 0.6 10 ^3/uL (0.4-5.4); Lymphocytes % (auto) 14.1 % (10.0-50.0); Mean Corpuscular Hemoglobin 30.6 pg (28.0-32.0); Mean Corpuscular Hgb Conc. 32.7 g/dL (32.0-36.0); Mean Corpuscular Volume 93.8 fL (80.0-100.0); Monocytes # (auto) 0.3 10 ^3/uL (0-1.3); Monocytes % (auto) 7.6 % (0.0-12.0); Neutrophils # (auto) 3.4 10 ^3/uL (1.6-8.6); Neutrophils % (auto) 73.7 % (37.0-80.0); Platelet Count (auto) 133 10^3/uL (140-450); Red Blood Cells 3.45 10^6/uL (4.5-5.90); Red Cell Distribution Width 16.4 % (11.8-14.3); White Blood Cell 4.6 10^3/uL (4.4-10.8)
[2019-09-10] MEDS: InsuLIN REG 1unit/0.01ml Soln (100units/ml) SC SCH ×4 (06:33→20:42)
[2019-09-10] MEDS: SODIUM CHLOR 0.9% PF (SALINE LOCK) 10ML VIAL/SYR IV SCH ×3 (06:33→22:08)
[2019-09-10 06:47] LABS: Potassium 3.9 mmol/L (3.5-5.1)
[2019-09-10 06:51] LABS: BUN/Creatinine Ratio 15.2; Calcium 9.1 mg/dL (8.5-10.1)
[2019-09-10] MEDS: ALBUTEROL SULF 2.5 MG/0.5ML(0.5%) NEB SOLN NEB SCH ×3 (07:31→23:00)
--- NOTE | 2019-09-10 07:31 | NUR ---
Opening Shift Note Assumed care of patient, awake and alert. No S/S of distress/SOB, on O2 at 4l, denies pain. Instructed on POC and to call for assist PRN, will continue to monitor for changes Q1hr and PRN.
[2019-09-10 09:00] VITALS: BP 106/59
[2019-09-10] MEDS: levoFLOXacin 500MG 100 ML IV SCH (10:47)
[2019-09-10] MEDS: GABAPENTIN 300 MG CAP PO SCH ×2 (10:47→20:40)
[2019-09-10] MEDS: ASPirin 81 mg TAB PO SCH (10:47)
[2019-09-10] MEDS: DOXYCYCLINE 100 MG TAB/CAP PO SCH (10:48)
[2019-09-10] MEDS: ENOXAPARIN SOD 120 MG/0.8 ML SYRINGE SC SCH (10:48)
[2019-09-10] MEDS: ALLOPURINOL 300 MG TAB PO SCH (10:48)
[2019-09-10] MEDS: POTASSIUM EFFERVESENT TAB 25 MEQ PO SCH (10:49)
[2019-09-10 13:00] VITALS: BP 127/60
[2019-09-10 17:00] VITALS: BP 109/65
--- NOTE | 2019-09-10 19:00 | NUR ---
Opening Shift Note Assumed care of patient, awake and alert. Patient becomes disoriented at times and he says it is because of pain medications that he looses track of time and faces. No S/S of distress/SOB or pain. Instructed on POC and to call for assist as needed. Bed on lowest position, call light with in reach, side rails up for safety. Blister on left upper chest is covered with dressing, no bleeding. Will continue to monitor.
[2019-09-10] MEDS: APIXABAN 5 MG TAB PO SCH (20:40)
[2019-09-10 22:23] VITALS: BP 101/63
[2019-09-11] MEDS: HYDROcodone-ACET 10/325MG TAB PO PRN ×3 (00:06→12:34)
[2019-09-11 05:15] VITALS: BP 118/63
[2019-09-11] MEDS: SODIUM CHLOR 0.9% PF (SALINE LOCK) 10ML VIAL/SYR IV SCH ×2 (06:01→14:13)
[2019-09-11] MEDS: FUROSEMIDE 20 MG/2 ML VIAL IV SCH ×2 (06:01→10:00)
[2019-09-11] MEDS: ACCU-CHEK COMFORT CURVE STRIP VI SCH ×2 (06:02→11:31)
[2019-09-11] MEDS: InsuLIN REG 1unit/0.01ml Soln (100units/ml) SC SCH ×2 (06:02→11:32)
[2019-09-11] MEDS: ALBUTEROL SULF 2.5 MG/0.5ML(0.5%) NEB SOLN NEB SCH ×2 (07:24→13:24)
[2019-09-11 09:00] VITALS: BP 120/66
[2019-09-11] MEDS ORDERED: POTASSIUM CHL 20 Meq TABLET PO ONE (09:30)
[2019-09-11] MEDS ORDERED: FUROSEMIDE 20 MG/2 ML VIAL IV ONE (09:30)
[2019-09-11] MEDS: GABAPENTIN 300 MG CAP PO SCH (10:00)
[2019-09-11] MEDS: APIXABAN 5 MG TAB PO SCH (10:00)
[2019-09-11] MEDS: POTASSIUM EFFERVESENT TAB 25 MEQ PO SCH (10:00)
[2019-09-11] MEDS: ALLOPURINOL 300 MG TAB PO SCH (10:00)
[2019-09-11] MEDS ORDERED: levoFLOXacin 500 MG TAB PO SCH (10:00)
--- NOTE | 2019-09-11 10:00 | NUR ---
PER MD NOEL PATIENT TO RECEIVE TOTAL OF 40MG OF LASIX. WILL IMPLEMENT.
[2019-09-11 10:14] VITALS: BP 120/66
[2019-09-11 13:00] VITALS: BP 143/76
--- NOTE | 2019-09-11 14:12 | NUR ---
Assessment Patient is a 59-year-old male who is alert and oriented. Prior to admission patient lived home alone and functioned with assistance. Patient informed me his daughter Delphine is his caregiver and [employer]. Patient informed me his daughter Delphine helps him with his ADLs. Patient informed me he has a front wheel walker for home use. Per patient he would like to see if he can get a walker with seat. Informed patient I will inform bedside nurse regarding walker with seat. Advised patient there is two social service consults one for SNF placement and for home health physical therapy and wound care. Patient informed me he does not want to be placed at a [facility] and would like to return home. Per patient he has good family support and his daughter Delphine will help with his ADLs. Patient informed me he is on service with [facility] and would like to resume service with [place]. Informed patient clinical information will be faxed to [facility]. Informed Patient he has a right to participate in all discharge planning. Patient verbalized understanding and agreed to discharge plan. Informed REY Zhao regarding home health order and DME. Addendum: 09/11/19 at 1413 by MILE AARON Amended: Links added.
--- NOTE | 2019-09-11 14:13 | NUR ---
D/C Planning Regarding social service consult for home health for physical therapy, safety evaluation, medication management, vitals and heavy duty walker with seat. Faxed clinical information to [facility]. Per Zoey with [facility] [phone] patient has been accepted and they will resume care within 24-48hrs upon d/c day. Faxed clinical information to [employer]. Per Sobeida with [employer] they will deliver heavy walker duty to front lobby. Faxed clinical information to [facility] requesting authorization for home health and DME. Obtain authorization from [facility] for home health [id number] and [employer] [id number]. Informed ERY Zhao.
--- NOTE | 2019-09-11 16:32 | NUR ---
Discharge instructions given as ordered. Encourage to follow up with PMD as instructed. All questions and concerns addressed. Patient verbalized understanding. Medication reconciliation form completed and copy given to patient. IV removed with catheter intact, pressure dressing applied, richardson catheter removed. Telemetry unit returned to ICU. Patient taken to vehicle via wheelchair with all personal belongings, as well as walker with seat that was delivered at bed side, accompanied by staff. No distress noted at time of departure.
== END 2019-09-11 16:10 | disposition home health service (06) | DRG 291 ==
LOC: EDBD 08:57 → ER 08:57 → OVERFLOW 08:58 → TELE-CENTR 09-08 15:14
PROVIDERS: ADMIT Internal Medicine; ATTEND Internal Medicine
PROC: 5A09457 Assistance with Respiratory Ventilation, 24-96 Consecutive Hours, Continuous Positive Airway Pressure (ICD-10-PCS; principal; 2019-09-05)
PROC: 5A09357 Assistance with Respiratory Ventilation, Less than 24 Consecutive Hours, Continuous Positive Airway Pressure (ICD-10-PCS; 2019-09-09)
PROC: 5A09357 Assistance with Respiratory Ventilation, Less than 24 Consecutive Hours, Continuous Positive Airway Pressure (ICD-10-PCS; 2019-09-10)
PROC: 5A09357 Assistance with Respiratory Ventilation, Less than 24 Consecutive Hours, Continuous Positive Airway Pressure (ICD-10-PCS; 2019-09-11)
DX: I11.0 Hypertensive heart disease with heart failure (principal); J18.9 Pneumonia, unspecified organism; J96.21 Acute and chronic respiratory failure with hypoxia; E66.2 Morbid (severe) obesity with alveolar hypoventilation; E44.1 Mild protein-calorie malnutrition; J44.1 Chronic obstructive pulmonary disease with (acute) exacerbation; I48.20 Chronic atrial fibrillation, unspecified; L03.116 Cellulitis of left lower limb; L03.115 Cellulitis of right lower limb; D68.69 Other thrombophilia; E87.1 Hypo-osmolality and hyponatremia; J44.0 Chronic obstructive pulmonary disease with (acute) lower respiratory infection; L97.919 Non-pressure chronic ulcer of unspecified part of right lower leg with unspecified severity; L97.929 Non-pressure chronic ulcer of unspecified part of left lower leg with unspecified severity; Z68.43 Body mass index [BMI] 50.0-59.9, adult; I50.33 Acute on chronic diastolic (congestive) heart failure; I87.8 Other specified disorders of veins; E11.21 Type 2 diabetes mellitus with diabetic nephropathy; E11.40 Type 2 diabetes mellitus with diabetic neuropathy, unspecified; Z20.828 Contact with and (suspected) exposure to other viral communicable diseases; I87.2 Venous insufficiency (chronic) (peripheral); D63.8 Anemia in other chronic diseases classified elsewhere; E78.5 Hyperlipidemia, unspecified; F41.9 Anxiety disorder, unspecified; I25.10 Atherosclerotic heart disease of native coronary artery without angina pectoris; Z79.01 Long term (current) use of anticoagulants; Z82.49 Family history of ischemic heart disease and other diseases of the circulatory system; Z83.3 Family history of diabetes mellitus; Z88.5 Allergy status to narcotic agent
CPT/HCPCS: 36415; 36600; 71045; 80048; 80053; 80307; 81001; 82550; 82728; 82805; 82962; 83036; 83615; 83735; 83880; 84443; 84484; 85025; 85379; 86141; 87040; 93005; 93970; 94640; 94660; 96365; 96367; 96375; 97110; 97116; 97530; G0378; J1815; J1956; J2405; J3490